=== PATIENT | male | born 1940 | race Caucasian/White ===

== ENCOUNTER 2020-06-28 18:39 | Inpatient (IN) ==
[2020-07-01] MEDS ORDERED: (Adalimumab [Humira] 40 MG) SQ SCH (22:45)
[2020-07-01] MEDS ORDERED: *HR* HYDROcodone/Acet 5/325 mg TABLET PO SCH (23:00)
[2020-07-02] MEDS: Ipratropium/Albuterol Neb 3 ML IH SCH ×4 (05:01→21:20)
[2020-07-02] MEDS: Budesonide/Formoterol 160/4.5 1 PUFF INH IH SCH ×2 (10:45→21:20)
[2020-07-02] MEDS ORDERED: Lidocaine 1% 20 ML MDV IM ONE (11:00)
[2020-07-02] MEDS: Apixaban 5 MG TABLET PO SCH ×2 (11:44→21:59)
[2020-07-02] MEDS: Aspirin 81 MG TAB.CHEW PO SCH (11:44)
[2020-07-02] MEDS: Furosemide 20 MG TABLET PO SCH (11:45)
[2020-07-02] MEDS: lisinopriL 5 MG TABLET PO SCH (11:46)
[2020-07-02] MEDS: Metoprolol XL (24 HR) Succ 25 MG TAB.ER.24H PO SCH ×2 (11:46→21:59)
[2020-07-02] MEDS: FLUoxetine 20 MG CAPSULE PO SCH (11:46)
[2020-07-02] MEDS ORDERED: Ertapenem 1,000 MG in 0.9 % Sodium Chloride Mini Bag 100 ML IVPB ONE (12:30)
[2020-07-02] MEDS: (Adalimumab [Humira] 40 MG) SQ SCH (15:47)
[2020-07-02] MEDS: Gabapentin 300 MG CAPSULE PO SCH (21:59)
[2020-07-03] MEDS: Ipratropium/Albuterol Neb 3 ML IH SCH ×2 (04:23→11:01)
[2020-07-03] MEDS: FLUoxetine 20 MG CAPSULE PO SCH (10:11)
[2020-07-03] MEDS: Apixaban 5 MG TABLET PO SCH ×2 (10:11→20:25)
[2020-07-03] MEDS: Aspirin 81 MG TAB.CHEW PO SCH (10:11)
[2020-07-03] MEDS: Metoprolol XL (24 HR) Succ 25 MG TAB.ER.24H PO SCH ×2 (10:12→20:25)
[2020-07-03] MEDS: lisinopriL 5 MG TABLET PO SCH (10:12)
[2020-07-03] MEDS: Furosemide 20 MG TABLET PO SCH (10:12)
[2020-07-03 10:20] LABS: Alanine Aminotransferase 14 Units/L (7-52); Albumin/Globulin Ratio 0.6 (1.1-2.2); Alkaline Phosphatase 80 Units/L (34-104); Aspartate Amino Transferase 35 Units/L (13-39); BUN/Creatinine Ratio 26 (6-26); Bilirubin,Total 0.6 mg/dL (0.3-1.0); Blood Urea Nitrogen 21 mg/dL (8-23); Calcium 9.1 mg/dL (8.6-10.3); Carbon Dioxide 23 mEq/L (23-29); Chloride 105 mEq/L (98-107); Globulin 4.9 g/dL (2.4-3.5); Glucose 95 mg/dL (70-105); Osmolality,Calculated 289 (280-300); Potassium 4.9 mEq/L (3.5-5.1); Sodium 138 mEq/L (136-145); Total Protein 7.9 g/dL (6.4-8.9); eGFR For African Americans > 60 (> 60); eGFR For Non-African Americans > 60 (> 60)
[2020-07-03] MEDS: Budesonide/Formoterol 160/4.5 1 PUFF INH IH SCH ×2 (11:01→22:08)
[2020-07-03 14:09] LABS: Basophils % 0.4 %; Eosinophils # 0.1 K/mcL (0.0-0.6); Eosinophils % 0.5 %; Hematocrit 37.5 % (37.5-50.1); Hemoglobin 12.1 g/dL (12.9-16.9); Immature Granulocytes % 0.6 % (0-4); Lymphocytes # 1.8 K/mcL (0.6-4.6); Lymphocytes % 17.5 %; Mean Corpuscular HGB Conc 32.3 g/dL (31.6-35.5); Mean Corpuscular Hemoglobin 29.8 pg (28.0-33.3); Mean Corpuscular Volume 92.4 fL (83.0-100.0); Mean Platelet Volume 10.9 fL (9.4-12.4); Monocytes # 1.2 K/mcL (0.0-1.3); Monocytes % 11.2 %; Neutrophils # 7.4 K/mcL (1.6-8.9); Platelet Count 282 K/mcL (140-400); Red Blood Count 4.06 M/mcL (4.19-5.50); Red Cell Distribution Width 14.9 % (11.5-14.5); Segmented Neutrophils % 69.8 %; White Blood Count 10.5 K/mcL (4.3-11.1)
[2020-07-03] MEDS: Gabapentin 300 MG CAPSULE PO SCH (20:25)
[2020-07-04] MEDS: Apixaban 5 MG TABLET PO SCH ×2 (08:16→20:45)
[2020-07-04] MEDS: Aspirin 81 MG TAB.CHEW PO SCH (08:16)
[2020-07-04] MEDS: FLUoxetine 20 MG CAPSULE PO SCH (08:16)
[2020-07-04] MEDS: Metoprolol XL (24 HR) Succ 25 MG TAB.ER.24H PO SCH ×2 (08:17→20:45)
[2020-07-04] MEDS: Furosemide 20 MG TABLET PO SCH (08:17)
[2020-07-04] MEDS: Budesonide/Formoterol 160/4.5 1 PUFF INH IH SCH ×2 (09:32→21:43)
[2020-07-04] MEDS: Gabapentin 300 MG CAPSULE PO SCH (20:45)
[2020-07-04] MEDS: Acetaminophen 325 MG TABLET PO PRN (20:49)
[2020-07-05] MEDS: Budesonide/Formoterol 160/4.5 1 PUFF INH IH SCH ×2 (08:16→22:19)
[2020-07-05] MEDS: Aspirin 81 MG TAB.CHEW PO SCH (09:13)
[2020-07-05] MEDS: Apixaban 5 MG TABLET PO SCH ×2 (09:13→21:07)
[2020-07-05] MEDS: Furosemide 20 MG TABLET PO SCH (09:13)
[2020-07-05] MEDS: FLUoxetine 20 MG CAPSULE PO SCH (09:14)
[2020-07-05] MEDS: Metoprolol XL (24 HR) Succ 25 MG TAB.ER.24H PO SCH ×2 (09:14→21:08)
[2020-07-05 12:45] LABS: Hematocrit 36.6 % (37.5-50.1); Hemoglobin 11.9 g/dL (12.9-16.9); Mean Corpuscular HGB Conc 32.5 g/dL (31.6-35.5); Mean Corpuscular Hemoglobin 29.8 pg (28.0-33.3); Mean Corpuscular Volume 91.5 fL (83.0-100.0); Mean Platelet Volume 10.6 fL (9.4-12.4); Platelet Count 252 K/mcL (140-400); Red Cell Distribution Width 14.6 % (11.5-14.5); White Blood Count 8.1 K/mcL (4.3-11.1)
[2020-07-05 13:04] LABS: BUN/Creatinine Ratio 21 (6-26); Blood Urea Nitrogen 16 mg/dL (8-23); Calcium 8.7 mg/dL (8.6-10.3); Carbon Dioxide 27 mEq/L (23-29); Chloride 100 mEq/L (98-107); Glucose 93 mg/dL (70-105); Osmolality,Calculated 281 (280-300); Sodium 135 mEq/L (136-145); eGFR For African Americans > 60 (> 60); eGFR For Non-African Americans > 60 (> 60)
[2020-07-05] MEDS: *HR* LORazepam 1 MG TABLET PO PRN (16:13)
[2020-07-05] MEDS ORDERED: Haloperidol Lactate 5 MG/ML VIAL IM ONE (17:40)
[2020-07-05 18:26] LABS: Bilirubin,Urine Negative (Negative); Blood,Urine Trace-intact (Negative); Clarity,Urine Clear (Clear); Color,Urine Yellow (Yellow); Glucose,Urine (UA) Normal (Normal); Ketones,Urine Negative (Negative); Leukocyte Esterase,Urine Negative (Negative); Nitrite,Urine Negative (Negative); Protein,Urine Negative (Neg-Trace); Urobilinogen,Urine Normal (Normal)
[2020-07-05 18:37] LABS: RBC,Urine 0-3 per hpf (0-3); Squamous Epithelial Cell,Urine Few per hpf (None-Few); WBC,Urine 0-3 per hpf (0-3)
[2020-07-05] MEDS: Gabapentin 300 MG CAPSULE PO SCH (21:07)
[2020-07-06] MEDS: FLUoxetine 20 MG CAPSULE PO SCH (08:44)
[2020-07-06] MEDS: *HR* LORazepam 1 MG TABLET PO PRN (08:45)
[2020-07-06] MEDS: Furosemide 20 MG TABLET PO SCH (08:46)
[2020-07-06] MEDS: Apixaban 5 MG TABLET PO SCH ×2 (08:46→21:45)
[2020-07-06] MEDS: Aspirin 81 MG TAB.CHEW PO SCH (08:46)
[2020-07-06] MEDS: Metoprolol XL (24 HR) Succ 25 MG TAB.ER.24H PO SCH ×2 (08:47→21:45)
[2020-07-06] MEDS ORDERED: QUEtiapine Fumarate 25 MG TABLET PO ONE (10:45)
[2020-07-06] MEDS: *HR* HYDROcodone/Acet 5/325 mg TABLET PO PRN (11:03)
[2020-07-06] MEDS: Budesonide/Formoterol 160/4.5 1 PUFF INH IH SCH ×2 (11:16→21:33)
[2020-07-06] MEDS ORDERED: Isovue-370 500 ML BOTTLE IVP ONE (12:07)
[2020-07-06 12:45] LABS: ABG Base Excess 1 mEq/L (-2 to 3); ABG HCO3 26 mEq/L (21-27); ABG Oxygen Saturation 91 % (95-98); ABG PCO2 40 mmHg (35-45); ABG PH 7.42 pH Units (7.32-7.45); ABG PO2 59 mmHg (85-104); ABG TCO2 27 mEq/L (20-26)
[2020-07-06] MEDS ORDERED: Haloperidol Lactate 5 MG/ML VIAL IM PRN (16:18)
[2020-07-06] MEDS: QUEtiapine Fumarate 25 MG TABLET PO SCH (21:44)
[2020-07-06] MEDS: Gabapentin 300 MG CAPSULE PO SCH (21:45)
[2020-07-07] MEDS: Metoprolol XL (24 HR) Succ 25 MG TAB.ER.24H PO SCH ×2 (08:22→20:43)
[2020-07-07] MEDS: *HR* HYDROcodone/Acet 5/325 mg TABLET PO PRN ×2 (08:23→16:35)
[2020-07-07] MEDS: Apixaban 5 MG TABLET PO SCH ×2 (08:23→20:42)
[2020-07-07] MEDS: Furosemide 20 MG TABLET PO SCH (08:23)
[2020-07-07] MEDS: Aspirin 81 MG TAB.CHEW PO SCH (08:23)
[2020-07-07] MEDS: FLUoxetine 20 MG CAPSULE PO SCH (08:23)
[2020-07-07 08:39] LABS: Basophils # 0.1 K/mcL (0.0-0.2); Basophils % 0.4 %; Eosinophils # 0.1 K/mcL (0.0-0.6); Eosinophils % 0.9 %; Hematocrit 38.7 % (37.5-50.1); Hemoglobin 12.5 g/dL (12.9-16.9); Immature Granulocytes % 0.2 % (0-4); Lymphocytes # 1.8 K/mcL (0.6-4.6); Mean Corpuscular HGB Conc 32.3 g/dL (31.6-35.5); Mean Corpuscular Hemoglobin 29.9 pg (28.0-33.3); Mean Corpuscular Volume 92.6 fL (83.0-100.0); Mean Platelet Volume 10.5 fL (9.4-12.4); Monocytes # 1.3 K/mcL (0.0-1.3); Monocytes % 10.7 %; Neutrophils # 8.9 K/mcL (1.6-8.9); Platelet Count 270 K/mcL (140-400); Red Blood Count 4.18 M/mcL (4.19-5.50); Red Cell Distribution Width 14.9 % (11.5-14.5); Segmented Neutrophils % 72.8 %; White Blood Count 12.2 K/mcL (4.3-11.1)
[2020-07-07 08:59] LABS: Alanine Aminotransferase 17 Units/L (7-52); Albumin 3.2 g/dL (3.5-5.7); Albumin/Globulin Ratio 0.6 (1.1-2.2); Alkaline Phosphatase 87 Units/L (34-104); Aspartate Amino Transferase 24 Units/L (13-39); BUN/Creatinine Ratio 20 (6-26); Bilirubin,Total 0.9 mg/dL (0.3-1.0); Blood Urea Nitrogen 19 mg/dL (8-23); Calcium 9.1 mg/dL (8.6-10.3); Carbon Dioxide 31 mEq/L (23-29); Chloride 104 mEq/L (98-107); Globulin 5.2 g/dL (2.4-3.5); Glucose 120 mg/dL (70-105); Osmolality,Calculated 299 (280-300); Potassium 4.1 mEq/L (3.5-5.1); Sodium 143 mEq/L (136-145); Total Protein 8.4 g/dL (6.4-8.9); eGFR For African Americans > 60 (> 60); eGFR For Non-African Americans > 60 (> 60)
[2020-07-07] MEDS: Budesonide/Formoterol 160/4.5 1 PUFF INH IH SCH ×2 (10:38→21:03)
[2020-07-07] MEDS: Ringers Solution, Lactated 1,000 ML IVC SCH ×2 (13:43→23:34)
[2020-07-07] MEDS: Gabapentin 300 MG CAPSULE PO SCH (20:41)
[2020-07-07] MEDS: QUEtiapine Fumarate 25 MG TABLET PO SCH (20:41)
[2020-07-08] MEDS: *HR* HYDROcodone/Acet 5/325 mg TABLET PO SCH ×4 (00:26→23:22)
[2020-07-08 08:47] LABS: Basophils % 0.3 %; Eosinophils # 0.4 K/mcL (0.0-0.6); Eosinophils % 4.5 %; Hemoglobin 10.4 g/dL (12.9-16.9); Immature Granulocytes % 0.2 % (0-4); Lymphocytes # 2.2 K/mcL (0.6-4.6); Lymphocytes % 25.1 %; Mean Corpuscular HGB Conc 31.5 g/dL (31.6-35.5); Mean Corpuscular Hemoglobin 29.4 pg (28.0-33.3); Mean Corpuscular Volume 93.2 fL (83.0-100.0); Mean Platelet Volume 10.6 fL (9.4-12.4); Monocytes # 1.1 K/mcL (0.0-1.3); Monocytes % 12.8 %; Neutrophils # 4.9 K/mcL (1.6-8.9); Platelet Count 239 K/mcL (140-400); Red Blood Count 3.54 M/mcL (4.19-5.50); Red Cell Distribution Width 14.7 % (11.5-14.5); Segmented Neutrophils % 57.1 %; White Blood Count 8.7 K/mcL (4.3-11.1)
[2020-07-08 09:00] LABS: BUN/Creatinine Ratio 25 (6-26); Blood Urea Nitrogen 19 mg/dL (8-23); Calcium 8.4 mg/dL (8.6-10.3); Carbon Dioxide 30 mEq/L (23-29); Chloride 105 mEq/L (98-107); Glucose 98 mg/dL (70-105); Magnesium 1.8 mg/dL (1.6-2.6); Osmolality,Calculated 290 (280-300); Sodium 139 mEq/L (136-145); eGFR For African Americans > 60 (> 60); eGFR For Non-African Americans > 60 (> 60)
[2020-07-08] MEDS: Aspirin 81 MG TAB.CHEW PO SCH (09:12)
[2020-07-08] MEDS: FLUoxetine 20 MG CAPSULE PO SCH (09:12)
[2020-07-08] MEDS: Ringers Solution, Lactated 1,000 ML IVC SCH ×2 (09:13→20:46)
[2020-07-08] MEDS: Apixaban 5 MG TABLET PO SCH ×2 (09:19→20:46)
[2020-07-08 09:30] LABS: Thyroid Stimulating Hormone 1.577 mcIU/mL (0.340-5.600)
[2020-07-08] MEDS: Metoprolol XL (24 HR) Succ 25 MG TAB.ER.24H PO SCH ×2 (10:54→20:57)
[2020-07-08] MEDS: Budesonide/Formoterol 160/4.5 1 PUFF INH IH SCH ×2 (10:57→20:36)
[2020-07-08 12:55] LABS: Triiodothyronine (T3) Free 2.09 pg/mL (2.50-3.90)
[2020-07-08] MEDS: Acetaminophen 325 MG TABLET PO PRN (14:21)
[2020-07-08] MEDS: Vancomycin Oral Soln 125 MG/2.5 ML UDC PO SCH ×3 (14:21→20:46)
[2020-07-08] MEDS: QUEtiapine Fumarate 25 MG TABLET PO SCH (20:46)
[2020-07-08] MEDS: Gabapentin 300 MG CAPSULE PO SCH (21:12)
[2020-07-09] MEDS: Ringers Solution, Lactated 1,000 ML IVC SCH ×2 (05:24→16:00)
[2020-07-09] MEDS: Budesonide/Formoterol 160/4.5 1 PUFF INH IH SCH ×2 (08:08→22:24)
[2020-07-09] MEDS: FLUoxetine 20 MG CAPSULE PO SCH (08:37)
[2020-07-09] MEDS: Aspirin 81 MG TAB.CHEW PO SCH (08:37)
[2020-07-09] MEDS: *HR* HYDROcodone/Acet 5/325 mg TABLET PO SCH ×3 (08:38→23:20)
[2020-07-09] MEDS: Metoprolol XL (24 HR) Succ 25 MG TAB.ER.24H PO SCH ×2 (08:38→21:35)
[2020-07-09] MEDS: Apixaban 5 MG TABLET PO SCH ×2 (08:39→21:29)
[2020-07-09] MEDS: Vancomycin Oral Soln 125 MG/2.5 ML UDC PO SCH ×4 (08:39→21:29)
[2020-07-09] MEDS ORDERED: Neosporin OINT 1 APPL PACKET TP PRN (11:21)
[2020-07-09] MEDS: Gabapentin 300 MG CAPSULE PO SCH (21:29)
[2020-07-09] MEDS: QUEtiapine Fumarate 25 MG TABLET PO SCH (21:29)
[2020-07-10] MEDS: Ringers Solution, Lactated 1,000 ML IVC SCH ×2 (01:39→11:59)
[2020-07-10] MEDS: Vancomycin Oral Soln 125 MG/2.5 ML UDC PO SCH ×4 (08:53→22:37)
[2020-07-10] MEDS: Aspirin 81 MG TAB.CHEW PO SCH (08:53)
[2020-07-10] MEDS: Metoprolol XL (24 HR) Succ 25 MG TAB.ER.24H PO SCH ×2 (08:54→22:39)
[2020-07-10] MEDS: Apixaban 5 MG TABLET PO SCH ×2 (08:54→22:37)
[2020-07-10] MEDS: FLUoxetine 20 MG CAPSULE PO SCH (08:54)
[2020-07-10] MEDS: *HR* HYDROcodone/Acet 5/325 mg TABLET PO SCH ×3 (08:54→23:06)
[2020-07-10] MEDS: Budesonide/Formoterol 160/4.5 1 PUFF INH IH SCH ×2 (09:43→22:06)
[2020-07-10 11:19] LABS: Basophils % 0.3 %; Eosinophils # 0.3 K/mcL (0.0-0.6); Eosinophils % 3.9 %; Hematocrit 30.5 % (37.5-50.1); Hemoglobin 9.7 g/dL (12.9-16.9); Immature Granulocytes % 0.3 % (0-4); Lymphocytes # 1.7 K/mcL (0.6-4.6); Lymphocytes % 22.4 %; Mean Corpuscular HGB Conc 31.8 g/dL (31.6-35.5); Mean Corpuscular Hemoglobin 29.8 pg (28.0-33.3); Mean Corpuscular Volume 93.6 fL (83.0-100.0); Mean Platelet Volume 10.5 fL (9.4-12.4); Monocytes # 0.9 K/mcL (0.0-1.3); Monocytes % 12.2 %; Neutrophils # 4.5 K/mcL (1.6-8.9); Platelet Count 204 K/mcL (140-400); Red Blood Count 3.26 M/mcL (4.19-5.50); Red Cell Distribution Width 14.8 % (11.5-14.5); Segmented Neutrophils % 60.9 %; White Blood Count 7.4 K/mcL (4.3-11.1)
[2020-07-10 11:42] LABS: BUN/Creatinine Ratio 14 (6-26); Blood Urea Nitrogen 9 mg/dL (8-23); Calcium 8.1 mg/dL (8.6-10.3); Carbon Dioxide 31 mEq/L (23-29); Chloride 102 mEq/L (98-107); Glucose 112 mg/dL (70-105); Osmolality,Calculated 281 (280-300); Potassium 4.2 mEq/L (3.5-5.1); Sodium 136 mEq/L (136-145); eGFR For African Americans > 60 (> 60); eGFR For Non-African Americans > 60 (> 60)
[2020-07-10] MEDS: QUEtiapine Fumarate 25 MG TABLET PO SCH (22:36)
[2020-07-10] MEDS: Gabapentin 300 MG CAPSULE PO SCH (22:37)
[2020-07-11] MEDS: *HR* HYDROcodone/Acet 5/325 mg TABLET PO SCH ×2 (09:26→16:24)
[2020-07-11] MEDS: Aspirin 81 MG TAB.CHEW PO SCH (09:27)
[2020-07-11] MEDS: Metoprolol XL (24 HR) Succ 25 MG TAB.ER.24H PO SCH ×2 (09:27→21:04)
[2020-07-11] MEDS: Furosemide 20 MG TABLET PO SCH (09:27)
[2020-07-11] MEDS: Apixaban 5 MG TABLET PO SCH ×2 (09:28→21:05)
[2020-07-11] MEDS: FLUoxetine 20 MG CAPSULE PO SCH (09:28)
[2020-07-11] MEDS: Vancomycin Oral Soln 125 MG/2.5 ML UDC PO SCH ×4 (09:28→21:05)
[2020-07-11] MEDS: Budesonide/Formoterol 160/4.5 1 PUFF INH IH SCH ×2 (11:03→21:32)
[2020-07-11] MEDS: Gabapentin 300 MG CAPSULE PO SCH (21:05)
[2020-07-11] MEDS: QUEtiapine Fumarate 25 MG TABLET PO SCH (21:05)
[2020-07-12] MEDS: *HR* HYDROcodone/Acet 5/325 mg TABLET PO SCH ×3 (00:18→17:23)
[2020-07-12] MEDS: Vancomycin Oral Soln 125 MG/2.5 ML UDC PO SCH ×4 (09:02→20:56)
[2020-07-12] MEDS: Apixaban 5 MG TABLET PO SCH ×2 (09:03→20:57)
[2020-07-12] MEDS: Furosemide 20 MG TABLET PO SCH (09:03)
[2020-07-12] MEDS: Aspirin 81 MG TAB.CHEW PO SCH (09:03)
[2020-07-12] MEDS: FLUoxetine 20 MG CAPSULE PO SCH (09:03)
[2020-07-12] MEDS: Metoprolol XL (24 HR) Succ 25 MG TAB.ER.24H PO SCH ×3 (09:03→20:58)
[2020-07-12] MEDS: Budesonide/Formoterol 160/4.5 1 PUFF INH IH SCH ×2 (10:07→21:10)
[2020-07-12] MEDS: QUEtiapine Fumarate 25 MG TABLET PO SCH (20:56)
[2020-07-12] MEDS: Gabapentin 300 MG CAPSULE PO SCH (20:56)
[2020-07-13] MEDS: *HR* HYDROcodone/Acet 5/325 mg TABLET PO SCH ×3 (00:33→16:50)
[2020-07-13] MEDS: Furosemide 20 MG TABLET PO SCH (09:22)
[2020-07-13] MEDS: Apixaban 5 MG TABLET PO SCH ×2 (09:23→21:51)
[2020-07-13] MEDS: Metoprolol XL (24 HR) Succ 25 MG TAB.ER.24H PO SCH ×2 (09:23→21:51)
[2020-07-13] MEDS: Aspirin 81 MG TAB.CHEW PO SCH (09:23)
[2020-07-13] MEDS: Vancomycin Oral Soln 125 MG/2.5 ML UDC PO SCH ×4 (09:23→21:51)
[2020-07-13] MEDS: FLUoxetine 20 MG CAPSULE PO SCH (09:24)
[2020-07-13] MEDS: Budesonide/Formoterol 160/4.5 1 PUFF INH IH SCH ×2 (09:58→21:19)
[2020-07-13] MEDS: QUEtiapine Fumarate 25 MG TABLET PO SCH (21:51)
[2020-07-13] MEDS: Gabapentin 300 MG CAPSULE PO SCH (21:51)
[2020-07-14] MEDS: Aspirin 81 MG TAB.CHEW PO SCH (07:31)
[2020-07-14] MEDS: Metoprolol XL (24 HR) Succ 25 MG TAB.ER.24H PO SCH ×2 (07:31→20:33)
[2020-07-14] MEDS: *HR* HYDROcodone/Acet 5/325 mg TABLET PO SCH ×3 (07:31→17:08)
[2020-07-14] MEDS: FLUoxetine 20 MG CAPSULE PO SCH (07:32)
[2020-07-14] MEDS: Furosemide 20 MG TABLET PO SCH (07:32)
[2020-07-14] MEDS: Vancomycin Oral Soln 125 MG/2.5 ML UDC PO SCH ×4 (07:32→20:33)
[2020-07-14] MEDS: Apixaban 5 MG TABLET PO SCH ×2 (07:32→20:34)
[2020-07-14] MEDS: Budesonide/Formoterol 160/4.5 1 PUFF INH IH SCH ×2 (08:09→21:41)
[2020-07-14] MEDS: Gabapentin 300 MG CAPSULE PO SCH (20:34)
[2020-07-14] MEDS: QUEtiapine Fumarate 25 MG TABLET PO SCH (20:34)
[2020-07-15] MEDS: *HR* HYDROcodone/Acet 5/325 mg TABLET PO SCH ×3 (00:06→16:44)
[2020-07-15] MEDS: Budesonide/Formoterol 160/4.5 1 PUFF INH IH SCH ×2 (09:16→21:51)
[2020-07-15] MEDS: Vancomycin Oral Soln 125 MG/2.5 ML UDC PO SCH ×4 (09:56→21:22)
[2020-07-15] MEDS: Furosemide 20 MG TABLET PO SCH (09:58)
[2020-07-15] MEDS: FLUoxetine 20 MG CAPSULE PO SCH (09:58)
[2020-07-15] MEDS: Aspirin 81 MG TAB.CHEW PO SCH (09:58)
[2020-07-15] MEDS: Apixaban 5 MG TABLET PO SCH ×2 (09:59→21:22)
[2020-07-15] MEDS: Metoprolol XL (24 HR) Succ 25 MG TAB.ER.24H PO SCH ×2 (09:59→21:22)
[2020-07-15] MEDS: Gabapentin 300 MG CAPSULE PO SCH (21:22)
[2020-07-15] MEDS: QUEtiapine Fumarate 25 MG TABLET PO SCH (21:22)
[2020-07-16] MEDS: *HR* HYDROcodone/Acet 5/325 mg TABLET PO SCH ×3 (00:25→16:30)
[2020-07-16] MEDS: Budesonide/Formoterol 160/4.5 1 PUFF INH IH SCH ×2 (09:58→20:50)
[2020-07-16] MEDS: Vancomycin Oral Soln 125 MG/2.5 ML UDC PO SCH ×4 (10:07→21:27)
[2020-07-16] MEDS: Metoprolol XL (24 HR) Succ 25 MG TAB.ER.24H PO SCH ×2 (10:08→21:26)
[2020-07-16] MEDS: Aspirin 81 MG TAB.CHEW PO SCH (10:09)
[2020-07-16] MEDS: Furosemide 20 MG TABLET PO SCH (10:09)
[2020-07-16] MEDS: FLUoxetine 20 MG CAPSULE PO SCH (10:10)
[2020-07-16] MEDS: (Adalimumab [Humira] 40 MG) SQ SCH (10:10)
[2020-07-16] MEDS: Apixaban 5 MG TABLET PO SCH ×2 (10:10→21:26)
[2020-07-16] MEDS: QUEtiapine Fumarate 25 MG TABLET PO SCH (21:26)
[2020-07-16] MEDS: Gabapentin 300 MG CAPSULE PO SCH (21:28)
[2020-07-17] MEDS: *HR* HYDROcodone/Acet 5/325 mg TABLET PO SCH ×3 (00:10→17:07)
[2020-07-17] MEDS: Budesonide/Formoterol 160/4.5 1 PUFF INH IH SCH ×2 (08:43→21:40)
[2020-07-17] MEDS: Metoprolol XL (24 HR) Succ 25 MG TAB.ER.24H PO SCH ×2 (09:40→20:37)
[2020-07-17] MEDS: Aspirin 81 MG TAB.CHEW PO SCH (09:40)
[2020-07-17] MEDS: Vancomycin Oral Soln 125 MG/2.5 ML UDC PO SCH ×4 (09:40→20:36)
[2020-07-17] MEDS: Apixaban 5 MG TABLET PO SCH ×2 (09:40→20:36)
[2020-07-17] MEDS: FLUoxetine 20 MG CAPSULE PO SCH (09:40)
[2020-07-17] MEDS: Gabapentin 300 MG CAPSULE PO SCH (20:37)
[2020-07-17] MEDS: QUEtiapine Fumarate 25 MG TABLET PO SCH (20:37)
[2020-07-18] MEDS: *HR* HYDROcodone/Acet 5/325 mg TABLET PO SCH ×3 (00:59→17:18)
[2020-07-18] MEDS: FLUoxetine 20 MG CAPSULE PO SCH (09:45)
[2020-07-18] MEDS: Vancomycin Oral Soln 125 MG/2.5 ML UDC PO SCH ×2 (09:45→13:35)
[2020-07-18] MEDS: Apixaban 5 MG TABLET PO SCH ×2 (09:45→21:57)
[2020-07-18] MEDS: Aspirin 81 MG TAB.CHEW PO SCH (09:45)
[2020-07-18] MEDS: Budesonide/Formoterol 160/4.5 1 PUFF INH IH SCH ×2 (09:46→22:18)
[2020-07-18] MEDS: Metoprolol XL (24 HR) Succ 25 MG TAB.ER.24H PO SCH ×2 (09:47→21:58)
[2020-07-18] MEDS: QUEtiapine Fumarate 25 MG TABLET PO SCH (21:57)
[2020-07-18] MEDS: Gabapentin 300 MG CAPSULE PO SCH (21:58)
[2020-07-19] MEDS: *HR* HYDROcodone/Acet 5/325 mg TABLET PO SCH ×4 (03:14→22:54)
[2020-07-19] MEDS ORDERED: 0.9 % Sodium Chloride 1,000 ML IV ONE ×2 (08:11→17:28)
[2020-07-19] MEDS: Metoprolol XL (24 HR) Succ 25 MG TAB.ER.24H PO SCH ×2 (08:16→20:57)
[2020-07-19] MEDS: FLUoxetine 20 MG CAPSULE PO SCH (08:16)
[2020-07-19] MEDS: Acetaminophen 325 MG TABLET PO PRN ×2 (08:17→20:55)
[2020-07-19] MEDS: Apixaban 5 MG TABLET PO SCH ×2 (08:18→20:57)
[2020-07-19] MEDS: Aspirin 81 MG TAB.CHEW PO SCH (08:20)
[2020-07-19 08:48] LABS: Basophils % 0.2 %; Eosinophils % 0.1 %; Hematocrit 31.6 % (37.5-50.1); Hemoglobin 10.3 g/dL (12.9-16.9); Immature Granulocytes % 0.4 % (0-4); Lymphocytes # 0.7 K/mcL (0.6-4.6); Lymphocytes % 4.8 %; Mean Corpuscular HGB Conc 32.6 g/dL (31.6-35.5); Mean Corpuscular Hemoglobin 29.5 pg (28.0-33.3); Mean Corpuscular Volume 90.5 fL (83.0-100.0); Mean Platelet Volume 10.1 fL (9.4-12.4); Monocytes # 0.8 K/mcL (0.0-1.3); Monocytes % 5.5 %; Neutrophils # 13.1 K/mcL (1.6-8.9); Platelet Count 333 K/mcL (140-400); Red Blood Count 3.49 M/mcL (4.19-5.50); White Blood Count 14.7 K/mcL (4.3-11.1)
[2020-07-19] MEDS: Budesonide/Formoterol 160/4.5 1 PUFF INH IH SCH ×2 (09:11→21:32)
[2020-07-19 11:14] LABS: BUN/Creatinine Ratio 22 (6-26); Blood Urea Nitrogen 15 mg/dL (8-23); Calcium 7.8 mg/dL (8.6-10.3); Carbon Dioxide 28 mEq/L (23-29); Chloride 101 mEq/L (98-107); Glucose 117 mg/dL (70-105); Osmolality,Calculated 280 (280-300); Potassium 4.2 mEq/L (3.5-5.1); Sodium 134 mEq/L (136-145); eGFR For African Americans > 60 (> 60); eGFR For Non-African Americans > 60 (> 60)
[2020-07-19 12:35] LABS: Adenovirus Not Detected (Not Detect); Bordetella Pertussis Not Detected (Not Detect); Chlamydophila pneumoniae Not Detected (Not Detect); Coronavirus 229E Not Detected (Not Detect); Coronavirus HKU1 Not Detected (Not Detect); Coronavirus NL63 Not Detected (Not Detect); Coronavirus OC43 Not Detected (Not Detect); Human Metapneumovirus Not Detected (Not Detect); Human Rhinovirus/Enterovirus Not Detected (Not Detect); Influenza A Subtype 2009 H1 Not Detected (Not Detect); Influenza B Not Detected (Not Detect); Mycoplasma pneumoniae Not Detected (Not Detect); Parainfluenza Virus 1 Not Detected (Not Detect); Parainfluenza Virus 2 Not Detected (Not Detect); Parainfluenza Virus 3 Not Detected (Not Detect); Parainfluenza Virus 4 Not Detected (Not Detect); Respiratory Syncytial Virus Not Detected (Not Detect)
[2020-07-19] MEDS ORDERED: 0.9 % Sodium Chloride 1,000 ML ONE (12:59)
[2020-07-19] MEDS ORDERED: 0.9 % Sodium Chloride 1,000 ML IVC ONE ×2 (13:04→22:53)
[2020-07-19] MEDS ORDERED: 0.9 % Sodium Chloride 1,000 ML IVC SCH (15:45)
[2020-07-19 17:50] LABS: Hematocrit 28.7 % (37.5-50.1); Hemoglobin 9.1 g/dL (12.9-16.9); Mean Corpuscular HGB Conc 31.7 g/dL (31.6-35.5); Mean Corpuscular Hemoglobin 29.6 pg (28.0-33.3); Mean Corpuscular Volume 93.5 fL (83.0-100.0); Mean Platelet Volume 9.7 fL (9.4-12.4); Platelet Count 280 K/mcL (140-400); Red Blood Count 3.07 M/mcL (4.19-5.50); Red Cell Distribution Width 15.3 % (11.5-14.5); White Blood Count 14.2 K/mcL (4.3-11.1)
[2020-07-19 18:08] LABS: BUN/Creatinine Ratio 26 (6-26); Blood Urea Nitrogen 16 mg/dL (8-23); Calcium 7.6 mg/dL (8.6-10.3); Carbon Dioxide 27 mEq/L (23-29); Chloride 104 mEq/L (98-107); Glucose 138 mg/dL (70-105); Magnesium 1.7 mg/dL (1.6-2.6); Osmolality,Calculated 281 (280-300); Potassium 4.4 mEq/L (3.5-5.1); Sodium 134 mEq/L (136-145); eGFR For African Americans > 60 (> 60); eGFR For Non-African Americans > 60 (> 60)
[2020-07-19] MEDS ORDERED: Ertapenem 1,000 MG in 0.9 % Sodium Chloride Mini Bag 100 ML IVPB SCH (18:08)
[2020-07-19] MEDS ORDERED: Isovue-370 500 ML BOTTLE IVP ONE (18:16)
[2020-07-19 19:33] LABS: Bilirubin,Urine Negative (Negative); Blood,Urine Large (Negative); Clarity,Urine Cloudy (Clear); Color,Urine Amber (Yellow); Glucose,Urine (UA) Normal (Normal); Ketones,Urine Negative (Negative); Leukocyte Esterase,Urine Trace (Negative); Nitrite,Urine Positive (Negative); Protein,Urine 100 mg/dL (Neg-Trace); Specific Gravity,Urine >= 1.030 (1.010-1.025); Urobilinogen,Urine Normal (Normal)
[2020-07-19 19:43] LABS: Bacteria,Urine Many per hpf (None-Few); Mucus,Urine Many per lpf (None-Few); RBC,Urine TNTC per hpf (0-3); Squamous Epithelial Cell,Urine Few per hpf (None-Few); WBC,Urine TNTC per hpf (0-3)
[2020-07-19] MEDS: 0.9 % Sodium Chloride 1,000 ML IVC SCH (19:56)
[2020-07-19] MEDS: QUEtiapine Fumarate 25 MG TABLET PO SCH (20:56)
[2020-07-19] MEDS: Gabapentin 300 MG CAPSULE PO SCH (20:56)
[2020-07-19 21:42] LABS: Adenovirus Not Detected (Not Detect); Bordetella Pertussis Not Detected (Not Detect); Chlamydophila pneumoniae Not Detected (Not Detect); Coronavirus 229E Not Detected (Not Detect); Coronavirus HKU1 Not Detected (Not Detect); Coronavirus NL63 Not Detected (Not Detect); Coronavirus OC43 Not Detected (Not Detect); Human Metapneumovirus Not Detected (Not Detect); Human Rhinovirus/Enterovirus Not Detected (Not Detect); Influenza A Subtype 2009 H1 Not Detected (Not Detect); Influenza B Not Detected (Not Detect); Mycoplasma pneumoniae Not Detected (Not Detect); Parainfluenza Virus 1 Not Detected (Not Detect); Parainfluenza Virus 2 Not Detected (Not Detect); Parainfluenza Virus 3 Not Detected (Not Detect); Parainfluenza Virus 4 Not Detected (Not Detect); Respiratory Syncytial Virus Not Detected (Not Detect); SARS-CoV-2 Not Detected (Not Detect)
[2020-07-20 02:58] VITALS: BP 98/57
[2020-07-20] MEDS: 0.9 % Sodium Chloride 1,000 ML IVC SCH (03:10)
== END 2020-07-20 04:10 | disposition short-term general hospital (02) | DRG 689 ==
LOC: INPPIK 07-01 21:32
PROVIDERS: ADMIT Family Medicine; ATTEND Family Medicine

== ENCOUNTER 2021-05-27 10:57 | Inpatient (IN) ==
[2021-05-27] MEDS ORDERED: Ipratropium/Albuterol Neb 3 ML IH PRN (18:21)
[2021-05-27] MEDS ORDERED: Gabapentin 300 MG CAPSULE PO SCH (21:00)
[2021-05-28] MEDS ORDERED: amLODIPine 5 MG TABLET PO SCH (09:00)
[2021-05-28] MEDS: *HR* HYDROcodone/Acet 5/325 mg TABLET PO SCH ×2 (21:21→21:24)
[2021-05-28] MEDS: Apixaban 5 MG TABLET PO SCH ×2 (21:22→21:24)
[2021-05-28] MEDS: Metoprolol XL (24 HR) Succ 25 MG TAB.ER.24H PO SCH (21:24)
[2021-05-28] MEDS: Budesonide/Formoterol 160/4.5 1 PUFF INH IH SCH ×2 (23:15→23:20)
[2021-05-29] MEDS: *HR* HYDROcodone/Acet 5/325 mg TABLET PO SCH ×4 (01:57→21:03)
[2021-05-29] MEDS: Furosemide 20 MG TABLET PO SCH ×2 (10:35→10:40)
[2021-05-29] MEDS: FLUoxetine 20 MG CAPSULE PO SCH ×2 (10:36→10:41)
[2021-05-29] MEDS: lisinopriL 5 MG TABLET PO SCH (10:36)
[2021-05-29] MEDS: Metoprolol XL (24 HR) Succ 25 MG TAB.ER.24H PO SCH ×4 (10:37→21:04)
[2021-05-29] MEDS: Apixaban 5 MG TABLET PO SCH ×3 (10:37→21:03)
[2021-05-29] MEDS: Budesonide/Formoterol 160/4.5 1 PUFF INH IH SCH ×2 (11:04→22:33)
[2021-05-29] MEDS: Gabapentin 300 MG CAPSULE PO SCH ×2 (19:20→21:07)
[2021-05-30 07:03] LABS: Basophils # 0.1 K/mcL (0.0-0.2); Basophils % 0.6 %; Eosinophils # 0.3 K/mcL (0.0-0.6); Eosinophils % 3.1 %; Hemoglobin 12.1 g/dL (12.9-16.9); Immature Granulocytes % 0.4 % (0-4); Lymphocytes # 2.1 K/mcL (0.6-4.6); Lymphocytes % 26.1 %; Mean Corpuscular HGB Conc 31.8 g/dL (31.6-35.5); Mean Corpuscular Hemoglobin 28.1 pg (28.0-33.3); Mean Corpuscular Volume 88.2 fL (83.0-100.0); Mean Platelet Volume 11.3 fL (9.4-12.4); Monocytes % 12.4 %; Neutrophils # 4.6 K/mcL (1.6-8.9); Platelet Count 287 K/mcL (140-400); Red Blood Count 4.31 M/mcL (4.19-5.50); Red Cell Distribution Width 15.9 % (11.5-14.5); Segmented Neutrophils % 57.4 %
[2021-05-30 07:12] LABS: BUN/Creatinine Ratio 25 (6-26); Blood Urea Nitrogen 19 mg/dL (8-23); Calcium 8.8 mg/dL (8.6-10.3); Carbon Dioxide 29 mEq/L (23-29); Chloride 100 mEq/L (98-107); Glucose 85 mg/dL (70-105); Osmolality,Calculated 280 (280-300); Potassium 3.9 mEq/L (3.5-5.1); Sodium 134 mEq/L (136-145); eGFR For African Americans > 60 (> 60); eGFR For Non-African Americans > 60 (> 60)
[2021-05-30] MEDS: Apixaban 5 MG TABLET PO SCH ×2 (08:44→21:39)
[2021-05-30] MEDS: FLUoxetine 20 MG CAPSULE PO SCH (08:44)
[2021-05-30] MEDS: lisinopriL 5 MG TABLET PO SCH (08:44)
[2021-05-30] MEDS: Metoprolol XL (24 HR) Succ 25 MG TAB.ER.24H PO SCH ×2 (08:45→21:38)
[2021-05-30] MEDS: *HR* HYDROcodone/Acet 5/325 mg TABLET PO SCH ×3 (08:45→21:38)
[2021-05-30] MEDS: Furosemide 20 MG TABLET PO SCH (08:45)
[2021-05-30] MEDS: Budesonide/Formoterol 160/4.5 1 PUFF INH IH SCH ×2 (09:56→21:01)
[2021-05-30] MEDS ORDERED: Eucerin Cream 57 GM TUBE TP PRN (12:19)
[2021-05-30] MEDS: Gabapentin 300 MG CAPSULE PO SCH (21:39)
[2021-05-31] MEDS: Furosemide 20 MG TABLET PO SCH (09:15)
[2021-05-31] MEDS: Apixaban 5 MG TABLET PO SCH ×2 (09:15→20:50)
[2021-05-31] MEDS: Metoprolol XL (24 HR) Succ 25 MG TAB.ER.24H PO SCH ×2 (09:15→20:51)
[2021-05-31] MEDS: lisinopriL 5 MG TABLET PO SCH (09:16)
[2021-05-31] MEDS: *HR* HYDROcodone/Acet 5/325 mg TABLET PO SCH ×3 (09:16→20:49)
[2021-05-31] MEDS: FLUoxetine 20 MG CAPSULE PO SCH (09:16)
[2021-05-31] MEDS: Budesonide/Formoterol 160/4.5 1 PUFF INH IH SCH ×2 (09:39→22:15)
[2021-05-31] MEDS: Gabapentin 300 MG CAPSULE PO SCH (20:49)
[2021-06-01] MEDS: lisinopriL 5 MG TABLET PO SCH (09:01)
[2021-06-01] MEDS: *HR* HYDROcodone/Acet 5/325 mg TABLET PO SCH ×3 (09:01→20:09)
[2021-06-01] MEDS: Metoprolol XL (24 HR) Succ 25 MG TAB.ER.24H PO SCH ×2 (09:01→20:07)
[2021-06-01] MEDS: Apixaban 5 MG TABLET PO SCH ×2 (09:01→20:08)
[2021-06-01] MEDS: FLUoxetine 20 MG CAPSULE PO SCH (09:01)
[2021-06-01] MEDS: Furosemide 20 MG TABLET PO SCH (09:02)
[2021-06-01] MEDS: Budesonide/Formoterol 160/4.5 1 PUFF INH IH SCH ×2 (10:32→21:06)
[2021-06-01] MEDS: Gabapentin 300 MG CAPSULE PO SCH (20:09)
[2021-06-02] MEDS: *HR* HYDROcodone/Acet 5/325 mg TABLET PO SCH ×3 (08:10→20:29)
[2021-06-02] MEDS: Apixaban 5 MG TABLET PO SCH ×2 (09:14→20:28)
[2021-06-02] MEDS: Furosemide 20 MG TABLET PO SCH (09:14)
[2021-06-02] MEDS: FLUoxetine 20 MG CAPSULE PO SCH (09:14)
[2021-06-02] MEDS: Budesonide/Formoterol 160/4.5 1 PUFF INH IH SCH ×2 (09:56→21:34)
[2021-06-02] MEDS: lisinopriL 5 MG TABLET PO SCH (10:24)
[2021-06-02] MEDS: Metoprolol XL (24 HR) Succ 25 MG TAB.ER.24H PO SCH ×2 (10:25→20:33)
[2021-06-02] MEDS: Gabapentin 300 MG CAPSULE PO SCH (20:29)
[2021-06-03] MEDS: lisinopriL 5 MG TABLET PO SCH (08:18)
[2021-06-03] MEDS: Metoprolol XL (24 HR) Succ 25 MG TAB.ER.24H PO SCH ×2 (08:19→20:25)
[2021-06-03] MEDS: *HR* HYDROcodone/Acet 5/325 mg TABLET PO SCH ×3 (08:19→20:25)
[2021-06-03] MEDS: FLUoxetine 20 MG CAPSULE PO SCH (08:19)
[2021-06-03] MEDS: Furosemide 20 MG TABLET PO SCH (08:19)
[2021-06-03] MEDS: Apixaban 5 MG TABLET PO SCH ×2 (08:19→20:25)
[2021-06-03] MEDS: Budesonide/Formoterol 160/4.5 1 PUFF INH IH SCH ×2 (10:10→21:12)
[2021-06-03] MEDS: Gabapentin 300 MG CAPSULE PO SCH (20:25)
[2021-06-04] MEDS: Budesonide/Formoterol 160/4.5 1 PUFF INH IH SCH ×2 (09:51→20:40)
[2021-06-04] MEDS: lisinopriL 5 MG TABLET PO SCH (10:31)
[2021-06-04] MEDS: *HR* HYDROcodone/Acet 5/325 mg TABLET PO SCH ×3 (10:31→20:53)
[2021-06-04] MEDS: FLUoxetine 20 MG CAPSULE PO SCH (10:31)
[2021-06-04] MEDS: Metoprolol XL (24 HR) Succ 25 MG TAB.ER.24H PO SCH ×2 (10:32→20:53)
[2021-06-04] MEDS: Furosemide 20 MG TABLET PO SCH (10:33)
[2021-06-04] MEDS: Apixaban 5 MG TABLET PO SCH ×2 (10:33→20:53)
[2021-06-04] MEDS: Gabapentin 300 MG CAPSULE PO SCH (20:52)
[2021-06-05 07:03] VITALS: BP 106/69; PULSE 60; TEMP 97.9
[2021-06-05] MEDS: Budesonide/Formoterol 160/4.5 1 PUFF INH IH SCH (09:11)
[2021-06-05 09:14] VITALS: RESP 18; O2SAT 90
[2021-06-05] MEDS: Apixaban 5 MG TABLET PO SCH (09:26)
[2021-06-05] MEDS: FLUoxetine 20 MG CAPSULE PO SCH (09:26)
[2021-06-05] MEDS: *HR* HYDROcodone/Acet 5/325 mg TABLET PO SCH (09:26)
[2021-06-05] MEDS: Furosemide 20 MG TABLET PO SCH (09:26)
[2021-06-05] MEDS: lisinopriL 5 MG TABLET PO SCH (09:27)
[2021-06-05] MEDS: Metoprolol XL (24 HR) Succ 25 MG TAB.ER.24H PO SCH (09:27)
== END 2021-06-05 12:29 | disposition home health service (06) | DRG 309 ==
LOC: INPPIK 05-28 20:10
PROVIDERS: ADMIT Internal Medicine; ATTEND Internal Medicine